=== PATIENT | male | born 1960 | race Caucasian/White ===

== ENCOUNTER 2018-02-13 15:41 | Emergency (ER) | payer OTHER ==
[~2018-02-13] VITALS: Ht 175.3 cm; Wt 60.8 kg
[2018-02-13 16:46] VITALS: BP 132/78
--- NOTE | 2018-02-13 16:57 | Diagnostic Imaging Report ---
Indication: Headache Technique: Continuous helical CT scanning of the head was performed without intravenous contrast material. Axial and coronal 5 mm sections were generated. Radiation dose was minimized using automated exposure control Dose: Total Dose Length Product - DLP 1418.[address] Dose Index - CTDIvol(s) 70.38 mGy. Comparison: Findings: The ventricular system is normal in size and configuration. There is no shift of midline structures. No abnormal extra-axial fluid collections are noted. There is no evidence of intracerebral bleeding. No other abnormal high or low density areas are noted within the brain. Normal tillman-white differentiation. Intact calvarium. There is bilateral ethmoid sinus disease. The mastoids are clear. The orbits are unremarkable. Impression: Negative for acute intracranial bleed or mass effect Incidental finding of sinus disease The CT scanner at [facility] is accredited by the [employer] and the scans are performed using protocols designed to limit radiation exposure to as low as reasonably achievable to attain images of sufficient resolution adequate for diagnostic evaluation.
--- NOTE | 2018-02-13 17:15 | Emergency Room Report ---
History of Present Illness General Chief Complaint: Headache Source: Patient Present Illness HPI 57-year-old male presents to the emergency department complaining of 5 out of 10 in severity localized headache, laceration, nausea and one episode of vomiting this a.m. Patient reports last night he walked into the corner of the wall and sustained laceration. Patient does not recall loss of consciousness he states there is a lot of blood and his is a nurse who clean the wound and applied a butterfly sutures. Patient states that he has had increase in tiredness, difficulty with memory recall as well as decreased response time. Patient states one episode of vomiting and some persistent nausea since waking up this morning. Patient states he has not taken any medication for his symptoms he denies taking blood thinning medications. Patient does report history of the bleed in the past. Denies numbness tingling or loss of sensation or gross motor movements of the extremities, incontinence of bowel or bladder. Denies CP, Palpitations, LOC, AMS, dizziness, Changes in Vision, weakness in the extremities or a sudden onset of a severe headache. Denies bleeding at this time and reports UTD with tetanus. pt. reports he is from [place] and will be flying back tomorrow am. Allergies: Coded Allergies: No Known Allergies (Unverified , 02/13/18) Patient History Past Medical History: see triage record Past Surgical History: none Pertinent Family History: none Immunizations: UTD Reviewed Nursing Documentation: PMH: Agreed; PSxH: Agreed Nursing Documentation-PMH Past Medical History: No Stated History Review of Systems All Other Systems: negative except mentioned in HPI Physical Exam Vital Signs Date Time Temp Pulse Resp B/P (MAP) Pulse Ox O2 Delivery O2 Flow Rate FiO2 02/13/18 15:50 97.5 75 16 144/80 99 Room Air Sp02 EP Interpretation: reviewed, normal General Appearance: no apparent distress, alert, GCS 15, non-toxic Head: normocephalic, other - laceration 3 inches to the left temperal/parietal portion of the scalp. Wound appears clean and well approximated with butterfly stitches, is not bleeding at this time, and no evidence of infection. Eyes: bilateral eye normal inspection, bilateral eye PERRL, bilateral eye EOMI , bilateral eye other - no photophobia ENT: hearing grossly normal, normal voice, TMs + canals normal - no evidence of CSSF leak, no dowd signs Neck: full range of motion, no bony tend Respiratory: lungs clear, normal breath sounds, speaking full sentences Cardiovascular #1: regular rate, rhythm Musculoskeletal: back normal, gait/station normal, normal range of motion, tender - TTP only near scalp lac. Neurologic: alert, oriented x3, responsive, motor strength/tone normal, sensory intact, normal gait, speech normal, other - no facial droop. pt. has somewhat delayed response time, and difficulty with recall of accident details. No motor weakness. no Nystagmus. , grossly normal Psychiatric: judgement/insight normal, memory normal - mildly delayed response time Skin: normal color, no rash, warm/dry, well hydrated, laceration - laceration 3 inches to the left temperal/parietal portion of the scalp. Medical Decision Making PA Attestation Dr. Oshea is my supervising Physician whom patient management has been discussed with. Diagnostic Impression: Primary Impression: Concussion Qualified Codes: S06.0X0A - Concussion without loss of consciousness, initial encounter Additional Impression: Laceration of scalp without complication Qualified Codes: S01.01XA - Laceration without foreign body of scalp, initial encounter ER Course 57-year-old male presents to the emergency department complaining of 5 out of 10 in severity localized headache, laceration, nausea and one episode of vomiting this a.m. Patient reports last night he walked into the corner of the wall and sustained laceration. Patient does not recall loss of consciousness he states there was a lot of blood, and his is a nurse and he cleaned the wound, applied pressure until bleeding stopped, and applied a butterfly sutures. Pt. denies bleeding at this time, denies erythema or warmth. Patient states that he has had increase in tiredness, difficulty with memory recall as well as decreased response time. Patient states one episode of vomiting and some persistent nausea since waking up this morning. Patient states he has not taken any medication for his symptoms he denies taking blood thinning medications. Patient does report history of the bleed in the past. Denies numbness tingling or loss of sensation or gross motor movements of the extremities, incontinence of bowel or bladder. Denies CP, Palpitations, AMS, dizziness, Changes in Vision, weakness in the extremities or a sudden onset of a severe headache. Pt. reports being UTD with tetanus. pt. reports he is from [place] and will be flying back tomorrow am. -Denies Loss of consciousness Ddx considered but are not limited to Fracture, dislocation, contusion, concussion Sprain/Strain/Spasm, subdural hematoma, ICH, Vital signs: are WNL, pt. is afebrile H&PE are most consistent with concussion given hx of difficulty with memory, N/ V. - no evidence of focal neurological deficit, no loss of consciousness. Pt. also has scalp wound that appears clean and well approximated with butterfly stitches, is not bleeding at this time, and no evidence of infection. ORDERS: -CT Head No Contrast: unremarkable other than the dental finding of sinus disease- Per official radiology report- Please see report for specific details. ED INTERVENTIONS: - Tylenol PO -Zofran PO - discussed red flag symptoms with pt. and responsible green party ( friend) to keep an eye out for such as persistent vomiting, worsening of his current symptoms or dizziness or visual or cognitive changes that would indicate prompt return to the ED. - Pt. and responsible green party verbalize their understanding and agreement with proposed treatment plan. - Pt. inquired about being able to fly on airplane tomorrow. d/w pt. flight should not have a bearing on his symptoms however with concussions physical activity should be limited and d/w pt. will write note for wheel chair assistance through [employer] and to the gait and his seat on airplane. DISCHARGE: At this time pt. is stable for d/c to home. Will provide printed patient care instructions, and any necessary prescriptions. Care plan and follow up instructions have been discussed with the patient prior to discharge. Last Vital Signs Date Time Temp Pulse Resp B/P (MAP) Pulse Ox O2 Delivery O2 Flow Rate FiO2 02/13/18 16:46 97.5 88 20 132/78 96 Room Air Disposition: HOME, SELF-CARE Condition: Stable Scripts Ondansetron Odt* (ZOFRAN ODT*) 8 Mg Tab.rapdis 4 MG ORAL Q6H PRN for Nausea & Vomiting, #10 TAB Prov: Luba Tobar 02/13/18 Acetaminophen* (TYLENOL EXTRA STRENGTH*) 500 Mg Tablet 500 MG ORAL Q6H, #20 TAB 0 Refills Prov: Luba Tobar 02/13/18 Departure Forms: Return to Work Return to Work Date: Feb 17, 2018 Work Restrictions: No Heavy Lifting, No Prolonged Standing Other Restrictions: NO unnecessary physicial activity, prolonged standing/ walking. Return to Full Activity: Feb 24, 2018 Patient Instructions: Concussion, Adult, [id number], Head Injury, Adult Additional Instructions: Take medications as directed. Follow up with a Primary Care Provider in 3-5 days, even if your symptoms have resolved. Neurology referral if symptoms persist or at the discretion of your PCP. Return sooner to ED if new symptoms occur, or current symptoms become worse. Do not drink alcohol, drive, or operate heavy machinery while taking * Ativan as this may cause drowsiness. - Please note that this Emergency Department Report was dictated using [employer] instructor technology software, occasionally this can lead to erroneous entry secondary to interpretation by the dictation equipment. Luba Tobar Feb 13, 2018 17:15
[2018-02-13] MEDS ORDERED: TYLENOL EXTRA500 MG ORAL (17:34)
[2018-02-13] MEDS ORDERED: ZOFRAN ODT8 MG ORAL (17:34)
[2018-02-13 17:44] VITALS: BP 125/70
== END 2018-02-13 18:10 | disposition home or self-care (01) ==
LOC: EMR 16:30
DX: S06.0X0A Concussion without loss of consciousness, initial encounter (principal); S01.01XA Laceration without foreign body of scalp, initial encounter; W22.01XA Walked into wall, initial encounter; Y92.009 Unspecified place in unspecified non-institutional (private) residence as the place of occurrence of the external cause
CPT/HCPCS: 70450; 99283